=== PATIENT | male | born 1990 | race Caucasian/White ===

== ENCOUNTER 2023-07-30 23:42 | Emergency (ER) | payer BC, SELFPAY ==
--- NOTE | ~2023-07-30 | XR_ITS ---
Portable chest x-ray Comparison: 02/14/2008 Clinical History: Chest pain Findings: Lungs are clear, without focal consolidation or pleural effusion. Cardiomediastinal silho uette is stable. Bones and soft tissues are unremarkable. Impression: Normal chest. Reviewed, dictated and finalized at location . Impression: Normal chest.
--- NOTE | ~2023-07-30 | CT_ITS ---
Clinical Indication: Chest pain CT Scan of the Chest with Contrast: Technique: Contiguous sections were acquired throughout the chest after intravenous administration of 100 cc of Omnipaque 350. Dose reduction technique was used on this scan by utilizing automated expos ure control and iterative reconstruction technique. The dose-length product (DLP) was 453.87 mGy-cm. Findings: There is no evidence of any significant mediastinal, hilar or axillary lymphadenopathy. There is no f illing defect in the pulmonary arterial tree to suggest pulmonary embolus. There is no evidence of ao rtic dissection or aneurysm. There is no evidence of pleural or pericardial effusion. Focal groundglass opacity present in the right upper lobe (axial image 31). There is a 1.4 cm pulmona ry nodule versus focal consolidation in the posterior medial left lower lobe (axial image 60).. Images through the upper abdomen reveal no abnormalities. Impression: No evidence of pulmonary embolus, aortic dissection, or aortic aneurysm. Focal groundglass opacity in the right upper lobe, suggestive of focal pneumonitis. 1.4 cm pulmonary nodule versus focal consolidation the posterior medial left lower lobe. Evaluation, this likely represents additional focal pneumonia. Follow-up exam in 1-3 months months recommended to assure resolution. Reviewed, dictated and finalized at location . Impression: No evidence of pulmonary embolus, aortic dissection, or aortic aneurysm. Focal groundglass opacity in the right upper lobe, suggestive of focal pneumoni tis. 1.4 cm pulmonary nodule versus focal consolidation the posterior medial left lo wer lobe. Evaluation, this likely represents additional focal pneumonia. Follow -up exam in 1-3 months months recommended to assure resolution.
[2023-07-30 23:42] VITALS: BP 141/92; PULSE 97; RESP 22; O2SAT 93
[2023-07-30 23:46] VITALS: BP 141/92; PULSE 110; RESP 18; TEMP 36.9; O2SAT 97
--- NOTE | 2023-07-30 23:53 | PC.NURSE ---
ER Provider at the bedside. Patient now able to speak in full sentences. Not coughing. Not clutching left rib area. Resting on stretcher with family at his side
--- NOTE | 2023-07-30 23:57 | ED.GENADULT ---
HPI - General Adult General Chief complaint: Shortness of Breath/Dyspnea Stated complaint: upper respiratory History of Present Illness HPI narrative: This is a 33-year-old male with history ITP and pulmonary embolism presenting for left-sided chest pain. Patient has had a cough for several days. 3 hours prior to arrival evolves sharp pain on the left side of his chest. Is associated with a nonproductive cough and difficulty breathing. He says this pain is not as bad as when he had a PE in the past. Patient is not currently on anticoagulation. He denies fevers chills, abdominal pain or diarrhea. He did have 1 episode of post-tussive emesis. Related Data Home Medications Medication Instructions Recorded Confirmed eltrombopag olamine 50 mg tablet 50 mg PO DAILY 07/31/23 07/31/23 (Promacta) Allergies Allergy/AdvReac Type Severity Reaction Status Date / Time sulfamethoxazole Allergy Mild Rash Verified 07/31/23 00:14 [From Bactrim] trimethoprim [From Bactrim] Allergy Mild Rash Verified 07/31/23 00:14 [facility] Past Medical History Medical History Chronic ITP (idiopathic thrombocytopenia) Exam Narrative: APPEARANCE: appears uncomfortable Head: atraumatic. EYES: EOMI, NOSE: Atraumatic NECK: Trachea midline RESPIRATORY: no respiratory distress, speaking in full sentences, clear to auscultation CARDIOVASCULAR: tachycardic, no peripheral edema ABDOMINAL: Non-distended, soft nontender MUSCULOSKELETAl: No obvious deformities NEURO: Alert. Moving 4/4 extremities SKIN:: Warm, dry. Normal color PSYCHIATRIC: Normal affect Course Vital Signs Vital signs: Vital Signs Pulse Rate 97 07/30/23 23:42 Respiratory Rate 22 H 07/30/23 23:42 Blood Pressure 141/92 H 07/30/23 23:42 Pulse Oximetry 93 07/30/23 23:42 Oxygen Delivery Room Air 07/30/23 23:42 Temperature 98.4 F 07/30/23 23:46 Pulse Rate 110 H 07/30/23 23:46 Respiratory Rate 18 07/30/23 23:46 Blood Pressure 141/92 H 07/30/23 23:46 Pulse Oximetry 97 07/30/23 23:46 Oxygen Delivery Room Air 07/30/23 23:46 Medical Decision Making MDM Narrative Medical decision making narrative: -Course: 33-year-old male history of ITP and pulmonary embolism presenting with left-sided chest pain. laboratory studies including white count troponins and BNP within normal limits. CT PE was negative for PE but did show some ill-defined infiltrates in the right upper lobe and left lower lobes. Left lower lobe corresponds with the patient's discomfort. On re-evaluation the patient is resting comfortably with stable vital signs. Discussed management of his pain/ cough with the patient. He will be treated with a course of NSAIDs and antibiotics in case the infiltrates are early developing pneumonia. Patient will have close follow-up with primary care physician and given return precautions. -DDX includes but is not limited to: Pneumonia, bronchitis, pulmonary embolism, pleurisy, chest wall pain, acs, ao pathology -Co-morbidities complicating care: ITP in remission -Independent interpretation of studies: white count 10.5. Hemoglobin 15.5. Platelet count 491 metabolic function within normal limits. Troponin BNP negative. Viral swabs negative stat read interpretation of CT shows no PE or aortic dissection. Small, poorly defined infiltrates greatest in the right upper and left lower lobes with a right upper lobe parenchymal calcifications/granuloma. -Interventions: Dilaudid, 1 L normal saline, 4 mg Zofran, 15 mg Toradol, 1000 mg Tylenol, Augmentin, doxycycline -Shared decision making / Disposition: discharged -RX Motrin, Tylenol, Augmentin, doxycycline Vital Signs Vital Signs: Vital Signs Pulse Rate 97 07/30/23 23:42 Respiratory Rate 22 H 07/30/23 23:42 Blood Pressure 141/92 H 07/30/23 23:42 Pulse Oximetry 93 07/30/23 23:42 Oxygen Delivery Room Air 07/30/23 23:4
[2023-07-31] VITALS (12 sets, daily range): BP systolic 105–124; BP diastolic 63–79; PULSE 61–90; RESP 15–27; O2SAT 91–96
--- NOTE | 2023-07-31 00:03 | PC.NURSE ---
xray and lab at the bedside
--- NOTE | 2023-07-31 00:10 | ECG_ITS ---
[address] Test Date: 2023-07-31 Pat Name: Luli Ortiz Department: Room: Gender: Data Collection Interviewer: : 1990 Requested By: Abhijeet Chen Order Number: [id number] Reading MD: Amanda Han M.D. Measurements Intervals [place] Rate: 92 P: 44 TN: 132 QRS: 4 QRSD: 107 T: 41 QT: 321 QTc: 397 Interpretive Statements SINUS RHYTHM NONSPECIFIC T-WAVE ABNORMALITY No previous ECG available for comparison Electronically Signed On 07-31-2023 13:32:53 CDT by Amanda Han M.D.
--- NOTE | 2023-07-31 00:12 | PC.NURSE ---
EKG completed by gina Bah
[2023-07-31 00:18] LABS: Eosinophils Absolute Auto 0.18 K/mm3 (0.02-0.50); Eosinophils Percent Auto 1.7 % (1.0-6.0); Hematocrit 46.1 % (40.0-54.0); Hemoglobin 15.5 g/dL (14.0-18.0); Immature Granulocyte Absolute 0.03 K/mm3 (0.00-0.00); Immature Granulocyte Percent A 0.3 % (0.0-0.0); Immature Platelet Fraction Pct 3.2 % (1.0-7.0); Lymphocytes Absolute Auto 2.86 K/mm3 (1.10-4.50); Lymphocytes Percent Auto 27.3 % (18.0-42.0); Mean Corpuscular HGB Conc 33.6 g/dL (32-36); Mean Corpuscular Hemoglobin 30.8 pg (27.0-31.0); Mean Corpuscular Volume 91.5 fL (78.0-102.0); Mean Platelet Volume 9.8 fl (8.7-11.0); Monocytes Absolute Auto 1.39 K/mm3 (0.10-0.90); Monocytes Percent Auto 13.3 % (2.0-11.0); Neutrophils Absolute Auto 5.91 K/mm3 (1.70-7.20); Neutrophils Percent Auto 56.4 % (50.0-70.0); Platelet Count Result 491 K/mm3 (150-420); Red Blood Count 5.04 M/mm3 (4.70-6.10); Red Cell Distribution Width 12.8 % (11.6-14.4); White Blood Count 10.5 K/mm3 (4.8-10.8)
[2023-07-31] MEDS: SODIUM CHLORIDE 0.9% IV 1,000 ML 999 ML IV CONT (00:23)
[2023-07-31] MEDS: HYDROmorphone HCL INJ (*CRX) 2 MG/ML VIAL 0.5 MG IV PUSH (00:23)
[2023-07-31] MEDS: ONDANSETRON INJ 4 MG/2 ML VIAL IV PUSH (00:24)
[2023-07-31 00:28] LABS: INR 0.9; Partial Thromboplastin Time 25.5 Sec (23.9-30.70)
[2023-07-31 00:36] LABS: Alanine Aminotransferase 31 U/L (16-63); Albumin Level 3.4 g/dL (3.4-5.0); Alkaline Phosphatase 119 U/L (46-116); Anion Gap 11 mmol/L (4-12); Aspartate Amino Transferase 23 U/L (15-37); Bilirubin,Total 0.2 mg/dL (0.00-1.00); Blood Urea Nitrogen 15 mg/dL (7-18); Calcium 8.9 mg/dL (8.5-10.1); Carbon Dioxide 24 mmol/L (21-32); Chloride 100 mmol/L (98-108); Estimated CRCL calculation 107 ml/min; Estimated Glomerular Filt Rate > 60; Glucose 134 mg/dL (70-99); NT Pro B Type Natriuretic Pept < 11 pg/mL (0-125); Osmolality Calculated 282 mOsm/kg (285-295); Potassium 3.8 mmol/L (3.5-5.1); Sodium 135 mmol/L (136-145); Total Protein 7.4 g/dL (6.4-8.2)
[2023-07-31 00:37] LABS: Troponin I 9.3 ng/L (0.00-60.4)
--- NOTE | 2023-07-31 00:39 | PC.NURSE ---
patient transported to ct via wheelchair
--- NOTE | 2023-07-31 00:47 | PC.NURSE ---
returned to room via wheelchair
[2023-07-31 00:56] LABS: SARS-CoV-2 RNA PCR Negative (Negative)
[2023-07-31 00:57] LABS: Influenza A QL RT-PCR Negative (Negative); Influenza B QL RT-PCR Negative (Negative); RSV RNA, RT-PCR Negative (Negative)
--- NOTE | 2023-07-31 01:52 | PC.NURSE ---
patient appears to be sleeping. resp even and unlabored. call light in reach
--- NOTE | 2023-07-31 02:00 | PC.NURSE ---
lab at the bedside
[2023-07-31 02:23] LABS: Troponin I 7.5 ng/L (0.00-60.4)
--- NOTE | 2023-07-31 02:25 | PC.NURSE ---
ER provider at the bedside
[2023-07-31] MEDS: ACETAMINOPHEN 500 MG TABLET 1000 MG PO (02:40)
[2023-07-31] MEDS: KETOROLAC 15 MG/ML VIAL (*BKC) IV PUSH (02:42)
== END 2023-07-31 02:55 | disposition home or self-care (01) ==
PROVIDERS: Emergency Provider Emergency Medicine
DX: J18.9 Pneumonia, unspecified organism (principal); R09.1 Pleurisy; F17.210 Nicotine dependence, cigarettes, uncomplicated; Z86.711 Personal history of pulmonary embolism
CPT/HCPCS: 36415; 71045; 71275; 80053; 83735; 83880; 84484; 85025; 85055; 85610; 85730; 87637; 93005; 96361; 96374; 96375; 99284; J1170; J1885; J2405; J7030; Q9967